=== PATIENT | male | born 1950 | race African-American/Black ===

== ENCOUNTER 2019-02-08 00:07 | Inpatient (IN) | payer OTHER, MEDICAID ==
[~2019-02-08] VITALS: Ht 182.9 cm; Wt 72.6 kg
[2019-02-08 00:07] VITALS: BP 141/66
--- NOTE | 2019-02-08 00:07 | NUR ---
DICK BECKER. TAKEN TO BED 1
--- NOTE | 2019-02-08 00:16 | NUR ---
68 YEAR OLD MALE COMPLAINS OF ABDOMINAL PAIN X 3 DAYS. PATIENT STATES THAT PAIN IS 9/10 AND THAT IT RADIATES FROM ABDOMEN TO LEGS. BOWEL SOUNDS ACTIVE X4, PAIN ON PALPATION IN UPPER ABDOMINAL AREA. PATIENT STATES HE HAS HAD NAUSEA BUT NO VOMITTING. HR 69, 100% O2, BP 138/88, RR 15. PATIENT ALERT AND ORIENTED, BREATHING EVEN AND UNLABORED, SKIN WARM AND DRY. BED IN LOWEST POSITION, LOCKED, BED RAIL UPX1.
[2019-02-08 01:03] LABS: BASOPHILS % (AUTO) 0.4 % (0.0-2.0); EOSINOPHILS % (AUTO) 0.9 % (0.0-4.0); HEMATOCRIT 31.9 % (36-52); HEMOGLOBIN 10.4 g/dL (12.0-18.0); LYMPHOCYTES # (AUTO) 1.3 K/uL (2.0-11.5); MEAN CORPUSCULAR HEMOGLOBIN 28 pg (27-31); MEAN CORPUSCULAR HGB CONC 33 g/dL (33-37); MEAN CORPUSCULAR VOLUME 86.3 fL (80-94); MONOCYTES # (AUTO) 0.5 K/uL (0.8-1.0); MONOCYTES % (AUTO) 11.8 % (1.7-9.3); NEUTROPHILS # (AUTO) 2.5 K/uL (1.8-7.7); NEUTROPHILS % (AUTO) 56.5 % (42.2-75.2); PLATELET COUNT (AUTO) 260 K/uL (140-450); RED BLOOD CELL COUNT(AUTO) 3.69 MIL/uL (4.20-6.10); RED CELL DISTRIBUTION WIDTH 13.5 % (11.6-13.7); WHITE BLOOD COUNT (AUTO) 4.4 K/uL (4.8-10.8)
--- NOTE | 2019-02-08 01:20 | NUR ---
PATIENT RESTING WITH EYES CLOSED, BREATHING EVEN AND UNLABORED
[2019-02-08 01:22] LABS: LYMPHOCYTES % (AUTO) 30.4 % (20.5-51.1)
[2019-02-08 01:24] LABS: ANION GAP 13.2 (8-16); CARBON DIOXIDE 26.8 mmol/L (21-32); CREATININE 0.9 mg/dL (0.7-1.3)
[2019-02-08 01:25] LABS: TOTAL BILIRUBIN 0.3 mg/dL (0.0-1.0)
[2019-02-08] MEDS ORDERED: ASPIRIN 81 MG TAB.CHEW PO ONE (01:45)
--- NOTE | 2019-02-08 01:48 | NUR ---
Dr. Richards examining patient.
[2019-02-08] MEDS ORDERED: PANTOPRAZOLE 40 MG INJ VIAL IVP ONE (02:05)
[2019-02-08] MEDS ORDERED: DEXTROSE 50% 50 ML SYR IVP PRN (02:20)
[2019-02-08] MEDS ORDERED: INSULIN LISPRO SLIDING SCALE 100 UNITS/ML VIAL SUBQ PRN (02:20)
[2019-02-08] MEDS ORDERED: NITROGLYCERIN 0.4 MG TAB SL PRN (02:20)
[2019-02-08] MEDS ORDERED: ACETAMINOPHEN 325 MG TAB PO PRN (02:20)
[2019-02-08] MEDS ORDERED: ONDANSETRON 4 MG/2 ML VIAL IVP PRN (02:20)
[2019-02-08] MEDS ORDERED: HYDROcodone/APAP 7.5/325 MG 1 TAB PO PRN (02:20)
--- NOTE | 2019-02-08 02:30 | NUR ---
PATIENT ALERT AND ORIENTED, BREATHING EVEN AND UNLABORED, WILL CONTINUE TO MONITOR.
[2019-02-08 02:54] LABS: PROTHROMBIN TIME 9.9 secs (10.8-13.4)
--- NOTE | 2019-02-08 03:40 | NUR ---
RECEIVED BEDSIDE REPORT FROM ED RN FOR PT'S CONTINUITY OF CARE. PT WAS TRANSPORTED VIA GURNEY, AAO X 4, PT C/O PAIN AND HUNGER, PT IS ON PROCESS DEVELOPMENT ENGINEER, IS ON ROOM AIR, HAS RIGHT WRIST 20G. VS CHECKED AND CHARTED. SKIN IS INTACT. EXPLAINED TO PT THE FISH AND GAME CLUB MANAGER ROUTINE, PT VERBALIZED UNDERSTANDING. PT REQUESTED AND PROVIDED SANDWICH AND DRINKS. SAFETY MEASURES IN PLACE, CALL LIGHT IS WITHIN REACH. WILL MONITOR PT THROUGHOUT SHIFT.
--- NOTE | 2019-02-08 03:40 | NUR ---
Patient will be admitted to care of DR SIMS. Admited to TELE. Will go to room 112A. Belongings list completed. Report to JOE RORDIGUEZ.
[2019-02-08 03:48] LABS: FREE T4 (FREE THYROXINE) 1.15 ng/dL (0.76-1.46); MAGNESIUM 1.9 mg/dL (1.8-2.4); THYROID STIMULATING HORMONE 0.82 uIU/mL (0.34-3.74)
[2019-02-08 04:00] VITALS: BP 140/88
[2019-02-08] MEDS: NACL 0.9% 1,000 ML IV SCH (04:22)
--- NOTE | 2019-02-08 04:23 | NUR ---
PT C/O BACK PAIN. ADMINISTERED PO PAIN MEDICATION AND IVF ORDERED. PT TOLERATED IT WELL.
[2019-02-08] MEDS: BLOOD GLUCOSE MONITORING 1 DEV DEV FS SCH ×4 (06:24→20:44)
--- NOTE | 2019-02-08 06:25 | NUR ---
PT REFUSED BLOOD GLUCOSE CHECK. PT TEACHING GIVEN. PT WANTS IT DONE SOME OTHER TIME AND JUST WANTS TO SLEEP. WILL ENDORSE PT TO AM SHIFT RN FOR PT'S CONTINUITY OF CARE.
[2019-02-08] MEDS ORDERED: EMTR1TAB12 PO (06:46)
[2019-02-08] MEDS ORDERED: COBI1TAB PO (06:46)
[2019-02-08] MEDS ORDERED: PANT40EC PO (06:46)
[2019-02-08] MEDS ORDERED: HYDR-5092 PO (06:46)
--- NOTE | 2019-02-08 07:20 | NUR ---
RECEIVED PATIENT FROM ENVIRONMENTAL COMPLIANCE OFFICER NURSE. PATIENT IS SLEEPING AT THIS TIME. VISIBLE CHEST RISE NOTED. ON TELE MONITORING. ABDOMEN SOFT AND NONTENDER. SKIN INTACT, WARM AND DRY. LUMBAR LORDOSIS NOTED. IV IN THE RIGHT WRIST GAUGE 20 RUNNING NS AT 10 ML/HR. PATIENT IS AMBULATORY. BED IN LOW POSITION. CALL LIGHT IS WITHIN REACH. WILL CONTINUE TO MONITOR
[2019-02-08 08:00] VITALS: BP 130/81
--- NOTE | 2019-02-08 08:00 | NUR ---
VITAL SIGNS TAKEN. PATIENT SHOWS NO DISTRESS. WILL CONTINUE TO MONITOR
--- NOTE | 2019-02-08 08:47 | NUR ---
DC PLANNIN YRS OLD MALE PATIENT WAS ADMITTED FROM HOME WITH A DX OF CHEST PAIN R/O ACS. PT HAS A HX. OF HIV, HEP C AND GERD. EKG DON RESULTED NSR WITH OUT EVIDENCE OF STEMI TROP (-), STARTED ACS MEDS ASA METOPROLOL, LISINOPRIL ATORVASTATIN AND NTG AND CARDIOLOGY CONSULT. DC PLAN TO GO HOME WHEN STABLE. CM TO FOLLOW.
[2019-02-08] MEDS ORDERED: PSYLLIUM 12.2 GM/PKT PO SCH (09:00)
[2019-02-08] MEDS ORDERED: EMTRICITABINE/TENOFOVIR 200-300MG 1 TAB PO SCH (09:00)
[2019-02-08] MEDS ORDERED: COBICISTAT PO SCH (09:00)
[2019-02-08] MEDS ORDERED: DARUNAVIR PO SCH (09:00)
--- NOTE | 2019-02-08 09:00 | NUR ---
PATIENT REFUSED TO GIVE HOME MEDS TO PHARMACY. PATIENT STATED HE DOES NOT WANT PHARMACY TO LOSE HIS HOME MEDICATIONS.
--- NOTE | 2019-02-08 09:07 | NUR ---
PATIENT HAS BEEN SCREENED AND CATEGORIZED MODERATE NUTRITION RISK. PATIENT WILL BE SEEN WITHIN 3-5 DAYS OF ADMISSION. 02/10/18 02/12/[address]
[2019-02-08] MEDS ORDERED: AMOXIL/CLAVULANATE 875/125 MG 1 TAB PO SCH (09:30)
[2019-02-08] MEDS: LISINOPRIL 5 MG TAB PO SCH (10:07)
[2019-02-08] MEDS: ASPIRIN 81 MG TAB.CHEW PO SCH (10:07)
[2019-02-08] MEDS: DOCUSATE SODIUM 100 MG GELCAP PO SCH ×2 (10:08→20:33)
[2019-02-08] MEDS: PANTOPRAZOLE 40 MG TABEC PO SCH (10:09)
[2019-02-08] MEDS: METOPROLOL 25 MG TAB PO SCH ×2 (10:09→20:37)
--- NOTE | 2019-02-08 10:10 | NUR ---
PATIENT ASKED TO RE-HEAT BREAKFAST. JORGE WEBSTER RE-HEAT THE FOOD. PATIENT REFUSED TO EAT BREAKFAST
--- NOTE | 2019-02-08 10:20 | NUR ---
PHYSICAL THERAPY AT BEDSIDE.
--- NOTE | 2019-02-08 10:30 | NUR ---
CALLED [facility] FOR FOOD. SANDWICH TO BE GIVEN TO THE PATIENT
[2019-02-08] MEDS: HYDROcodone/APAP 10/325 MG 1 TAB TAB PO PRN ×2 (10:39→22:09)
--- NOTE | 2019-02-08 10:49 | NUR ---
GIVEN MORNING MEDICATIONS PO. PATIENT REFUSED HEPARIN SUBQ. EXPLAINED TO PATIENT PURPOSE OF MEDS. PATIENT VERBALIZED UNDERSTANDING. BED IN LOW POSITION. CALL LIGHT IS WITHIN REACH. WILL CONTINUE TO MONITOR
--- NOTE | 2019-02-08 11:00 | NUR ---
SANDWICH GIVEN TO THE PATIENT. PATIENT INSISTING HE WANT BREAKFAST WITH SCRAMBLED EGGS, SAUSAGE. CHARGE NURSE SPOKE WITH THE PATIENT REGARDING THE TIME FOR BREAKFAST.
--- NOTE | 2019-02-08 11:05 | NUR ---
PATIENT REQUESTED MILK. GAVE TWO CARTOONS
--- NOTE | 2019-02-08 11:30 | NUR ---
PATIENT REFUSED BLOOD SUGAR CHECK
[2019-02-08 12:00] VITALS: BP 140/93
--- NOTE | 2019-02-08 12:46 | NUR ---
PER ANGLESMITH HELPER, PATIENT IS OFFERED LUNCH TRAY. ASKED TO CLEAR HIS BEDSIDE TABLE. PATIENT THREW AWAY SANDWICH ON THE FLOOR.
[2019-02-08] MEDS ORDERED: MAGNESIUM HYDROXIDE 2400 MG/30 ML UDC PO PRN (13:45)
--- NOTE | 2019-02-08 14:18 | NUR ---
EXPLAINED TO PATIENT PROCEDURE FOR BLADDER SCAN. PATIENT VERBALIZED UNDERSTANDING. BLADDER SCAN DONE, 200 ML URINE.
--- NOTE | 2019-02-08 15:38 | NUR ---
PATIENT IS RESTING AT THIS TIME. WATCHING TV. WILL CONTINUE TO MONITOR
[2019-02-08 16:00] VITALS: BP 138/95
--- NOTE | 2019-02-08 16:50 | NUR ---
VITAL SIGNS TAKEN. PATIENT SHOWS NO DISTRESS. WILL CONTINUE TO MONITOR. REFUSED BLOOD SUGAR CHECK
--- NOTE | 2019-02-08 16:58 | NUR ---
PATIENT IS LOOKING FOR HIS PHONE. INVENTORY SAYS THERE IS NO PHONE LISTED.
--- NOTE | 2019-02-08 16:59 | NUR ---
PATIENT ACCUSED RN OF THROWING HIS CALL LIGHT BECAUSE HE COULD NOT FIND HIS CELLPHONE. CHARGE NURSE, BALJIT PATEL WALKED INTO THE ROOM TO TALK TO THE PATIENT. PATIENT CHANGED HIS STORY SAYING THAT IT WAS NOT A CELL, AND HE WAS TALKING ABOUT A HOSPITAL WHITE PHONE. MUD TANK OPERATOR IS PAGED.
--- NOTE | 2019-02-08 17:14 | NUR ---
FIELD PLACEMENT DIRECTOR CARYN IS TALKING TO THE PATIENT AT THIS TIME.
--- NOTE | 2019-02-08 17:22 | NUR ---
UNABLE TO DO ECHO AT THIS TIME. GAS APPLIANCE SERVICER HELPER CAYRN IS SPEAKING TO PATIENT. WILL TRY ECHO AGAIN AT A LATER TIME.
[2019-02-08] MEDS ORDERED: MORPHINE SULFATE 2 MG/ML SYR IVP PRN (17:35)
[2019-02-08] MEDS ORDERED: LORazepam 2 MG/ML VIAL IVP PRN (18:15)
--- NOTE | 2019-02-08 18:30 | NUR ---
WAS ABOUT TO GIVE MORPHINE TO PATIENT BUT PATIENT REFUSED BECAUSE MORPHINE IS NOT ENOUGH DOSE. INFORMED CHARGE NURSE.
--- NOTE | 2019-02-08 18:40 | NUR ---
PT REFUSED ECHO. STATED THE GEL WAS TOO COLD. WILL TRY AGAIN TOMORROW
--- NOTE | 2019-02-08 19:10 | NUR ---
ENDORSED PATIENT TO PRODUCTION CONTROL EXPEDITER NURSE IN STABLE CONDITION
--- NOTE | 2019-02-08 19:11 | NUR ---
RECEIVED BEDSIDE REPORT FROM DAY SHIFT RN, PT STABLE, NO DISTRESS NOTED, PT C/O PAIN, STATED HE DOES NOT WANT TO TAKE MORPHINE 1MG ORDERED Q6H DUE TO MEDICATION DOSE NOT ENOUGH, WILL NOTIFY . PT ON ROOM AIR, NO SOB NOTED, IV TO LWRIST 20G PATENT INTACT, INFUSING WELL, PT ON ROOM AIR, NO SOB NOTED, INITIAL ASSESSMENT DONE, ALL SAFETY PRECAUTION MET,CALL LIGHT WITHIN REACH, WILL CONTINUE TO MONITOR.
[2019-02-08] MEDS ORDERED: MORPHINE SULFATE 2 MG/ML SYR IVP SCH (19:25)
--- NOTE | 2019-02-08 19:30 | NUR ---
DR. MAYS TALKED TO PT, DISCUSSED REGARDING PAIN MEDICATION, WILL ORDER ONE DOSE OF 2MG MORPHINE. WILL ADMINISTERED WHEN MEDICATION VERIFIED BY PHARMACY.
[2019-02-08 20:00] VITALS: BP 107/77
--- NOTE | 2019-02-08 20:26 | NUR ---
MORPHINE GIVEN PER DR ORDER, PT AWARE AND TOLERATED WELL, PAIN STATED AT 10/10, PT RESTING, CALL LIGHT WITHIN REACH, WILL CONTINUE TO MONITOR.
--- NOTE | 2019-02-08 20:33 | NUR ---
DUE MEDICATION GIVEN, PT REFUSED AUGMENTIN, AND HEPARIN, STATED DOES NOT WANT TO TAKE MEDICATION DUE TO IT BEING PRESCRIBED BY THE EARLIER DOCTOR, EDUCATE PT REGARDING MEDICATION STATED STILL DOES NOT WANT TO TAKE IT AND REQUESTED TO TALK TO . DR. MAYS SAW PT, PT STILL REFUSED MEDICATION. PT RESTING, NO DISTRESS NOTED, CALL LIGHT WITHIN REACH, WILL CONTINUE TO MONITOR. PT ALSO REFUSED BLOOD GLUCOSE CHECKS, STATED HE DOES NOT HAVE DIABETES AND REFUSED SUGAR CHECKS.
[2019-02-08] MEDS: AMOXIL/CLAVULANATE 875/125 MG 1 TAB PO SCH (20:44)
[2019-02-08] MEDS ORDERED: ATORVASTATIN 20 MG TAB PO SCH (21:00)
--- NOTE | 2019-02-08 21:30 | NUR ---
PT WENT TO CT WITH EDGE BASTER. STABLE.
--- NOTE | 2019-02-08 22:00 | NUR ---
PT CAME BACK FROM CT. PT REFUSED CT. NO DISTRESS NOTED, WILL CONTINUE TO MONITOR. Addendum: 02/09/19 at 0032 by Constanza Lawton RN DR DAVON RIOS
--- NOTE | 2019-02-08 22:09 | NUR ---
PT STATED HAVING PAIN, MEDICATION GIVEN, PT TOLERATED WELL, NO DISTRESS NOTED, CALL LIGHT WITHIN REACH, WILL CONTINUE TO MONITOR.
[2019-02-08 23:23] LABS: BARBITURATE, URINE NEG. ng/ml (NEG <=200); BENZODIAZEPINE, URINE NEG. ng/mL (NEG <=200); CANNABINOID, URINE POS. ng/mL (NEG <=50); COCAINE, URINE NEG. ng/mL (NEG <=300); OPIATE, URINE POS. ng/mL (NEG <=2000); PHENCYCLIDINE SCREEN,URINE NEG. ng/mL (NEG <=25)
[2019-02-09] VITALS: BP 136/89
--- NOTE | 2019-02-09 00:23 | NUR ---
CHECKED ON PT, PT RESTING, V/S TAKEN, WNL, CALL LIGHT WITHIN REACH, WILL CONTINUE TO MONITOR. PT STATED DO NOT WAKE HIM UP FOR MORNING V/S, EXPLAINED TO PT REGARDING IMPORTANCE OF V/S MONITORING, PT STATED, DO NOT WAKE HIM UP.
[2019-02-09] MEDS: NACL 0.9% 1,000 ML IV SCH (02:18)
--- NOTE | 2019-02-09 02:57 | NUR ---
CHECKED ON PT, PT SLEEPING, NO DISTRESS NOTED, CALL LIGHT WITHIN REACH, WILL CONTINUE TO MONITOR.
--- NOTE | 2019-02-09 05:15 | NUR ---
PT PULLED OUT IV, PT REFUSED IV INSERTION AT THIS TIME, NO DISTRESS NOTED, SLEEPING, CALL LIGHT WITHIN REACH, WILL CONTINUE TO MONITOR.
[2019-02-09] MEDS: BLOOD GLUCOSE MONITORING 1 DEV DEV FS SCH ×2 (05:50→11:30)
[2019-02-09] MEDS: PANTOPRAZOLE 40 MG TABEC PO SCH (05:50)
--- NOTE | 2019-02-09 05:51 | NUR ---
PT SLEEPING, DOES NOT WANT TO WAKE UP FOR MEDICATION PROTONIX, AND BLOOD GLUCO CHECK. PT STABLE, NO DISTRESS NOTED, CALL LIGHT WITHIN REACH, WILL CONTINUE TO MONITOR.
--- NOTE | 2019-02-09 07:20 | NUR ---
RECEIVED BED SIDE REPORT FROM LYMPHEDEMA THERAPIST NURSE, PATIENT IS IN STABLE CONDITION. WILL CONTINUE TO MONITOR
--- NOTE | 2019-02-09 07:24 | NUR ---
ENDORSED PT TO DAY SHIFT NURSE AMINTA RN, PT STABLE, NO DISTRESS NOTED, CALL LIGHT WITHIN REACH.
[2019-02-09 08:00] VITALS: BP 126/85
[2019-02-09 08:17] LABS: APPEARANCE,URINE CLEAR (CLEAR); BILIRUBIN,URINE NEGATIVE (NEGATIVE); BLOOD, URINE NEGATIVE (NEGATIVE); COLOR,URINE YELLOW (YELLOW); LEUKOCYTE ESTERASE ,URINE TRACE (NEGATIVE); NITRITE, URINE NEGATIVE (NEGATIVE); PH,URINE 6.5 (5.0-9.0); UGLUCOSE NEGATIVE (NEGATIVE)
--- NOTE | 2019-02-09 08:45 | NUR ---
SPOKE WITH PATIENT REGARDING MEDICATION, EDUCATED PATIENT ON THE SIDE EFFECTS OF MEDICATIONS AND PATIENT STATES HE WOULD LIKE TO HOLD OFF ON MEDICATIONS AND STATES, "DOES NOT WANT TO TAKE ANYTHING RIGHT NOW". WILL COME BACK TO REEDUCATE THE IMPORTANCE OF TAKING MEDICATIONS.
[2019-02-09 08:52] LABS: RBC,URINE 0-5 /HPF (0-5)
[2019-02-09] MEDS: AMOXIL/CLAVULANATE 875/125 MG 1 TAB PO SCH ×3 (09:00→11:55)
[2019-02-09] MEDS: DOCUSATE SODIUM 100 MG GELCAP PO SCH ×3 (09:00→11:55)
[2019-02-09] MEDS: METOPROLOL 25 MG TAB PO SCH ×3 (09:00→11:56)
[2019-02-09] MEDS: PSYLLIUM 12.2 GM/PKT PO SCH ×2 (09:00→10:48)
[2019-02-09] MEDS: LISINOPRIL 5 MG TAB PO SCH ×2 (09:00→10:46)
[2019-02-09] MEDS: ASPIRIN 81 MG TAB.CHEW PO SCH ×3 (09:00→11:55)
--- NOTE | 2019-02-09 09:30 | NUR ---
P.T. NOTES @ 0810, PATIENT WAS CLEARED FOR P.T. BY HIS NURSE AMINTA BUT BECAUSE HIS BREAKFAST TRAY WAS JUST SET UP AND HE IS ABOUT TO EAT, HE TOLD ME TO COME BACK LATER WHEN HE'S DONE. IRA, [facility] DIRECTOR INFORMED ME LATER THAT HE TOLD HER THAT HE WANTS PHYSICAL THERAPY NOW AND THAT HE WAS WAITING FOR ME. I RETURNED BACK AT 0930, BUT THEN HE APPEARS TO BE VERY AGITATED AND STATES THAT HE WANTS TO SPEAK TO HE HEAD DOCTOR TO ASK WHY PHYSICAL THERAPY IS BEING ORDERED AND THAT HE DOES NOT NEED IT. HE THEN STARTED TO TALK ABOUT HIS PAIN MEDICATION THAT IS NOT ENOUGH AND THAT THE STAFFS HERE ARE PLAYING GAMES WITH HIM BECAUSE HE IS NOT GETTING ENOUGH PAIN MEDICATION TO ALLEVIATE HIS PAIN. THIS PATIENT IS NOT APPROPRIATE WITH PHYSICAL THERAPY AT THIS TIME SO HE WILL BE DISCHARGED FROM THE SERVICES AND WILL ENDORSE TO NURSING FOR FOLLOW UP CARE.
--- NOTE | 2019-02-09 09:30 | NUR ---
PATIENT REFUSES PT/ REFUSES BLOOD DRAW. IS CURRENTLY TALKING TO [employer] REGARDING PLAN OF CARE. PER PROVIDER PT IS STABLE TO BE TO BE DISCHARGED TODAY. WILL CONTINUE TO MONITOR.
--- NOTE | 2019-02-09 10:02 | NUR ---
MEDICATIONS GIVEN, PATIENT REALLY UPSET ABOUT DISCHARGE, REQUESTING NEW PROVIDER. STATE HISTORICAL SOCIETY DIRECTOR SPEAKING TO PATIENT AT THIS MOMENT REGARDING CARE
--- NOTE | 2019-02-09 11:44 | NUR ---
Spoke to patient after he requested to speak to me, complaint about his missing phone and the nurses who was searching his bed to look for the cellphone. Also complaint about the doctor that his 1 mg of morphine is not controlling his pain and he takes oxycodone 3 times a day. I informed him that I will speak to the doctor to increase his pain med. He requested to change his nurse and his nurse assistance, I spoke to the charge nurse about the request and it was changed. Later he wants his dinner to be delivered by me because he does not trust the one who delivered the dinner tray. I explained to him that dinner is clean, he said he does not trust them and that he trust me. I went to the kitchen and ordered new tray for him. I spoke to the doctor regarding increase pain med.
[2019-02-09] MEDS: HYDROcodone/APAP 10/325 MG 1 TAB TAB PO PRN (11:55)
--- NOTE | 2019-02-09 11:55 | NUR ---
MEDICATIONS WERE VERIFIED WITH PROVIDER AND WILL BE SENT TO [facility] IN [place], PATIENT REQUESTING TO GET A RIDE TO [facility], S/W FLASH OVEN OPERATOR AND WILL COORDINATE RIDE. PATIENT REFUSING PM MEDICATIONS AT THIS TIME, ALSO REFUSING VITAL SIGNS AND GLUCOSE CHECKS. STATES HE IS NOT DIABETIC. PATIENT REEDUCATED ON THE IMPORTANCE OF MEDICATION ADMIN. REQUESTING THE PHARMACY TO ORDER DESCOZY AND PREZCOBIX WHICH IS HAS BEEN TAKING AT HOME. STATES THESE MEDICATIONS HAVE BEEN GIVEN TO HIM YESTERDAY. CONFIRMED WITH PHARMACIST THAT THE REQUESTED MEDICATIONS HAVE NOT BEEN GIVEN TO PATIENT WE DO NOT CARRY THESE TYPES OF MEDICATIONS. WILL CONTINUE TO MONITOR.
--- NOTE | 2019-02-09 13:05 | NUR ---
PATIENT EDUCATED ON MEDICATIONS SIDE EFFECTS, DISCHARGE INSTRUCTIONS WERE GIVEN TO PATIENT, PATIENT VERBALIZED UNDERSTANDING, AND WILL MILL OPERATOR HELPER MEDICATIONS TO [facility]. HOMELESS RESOURCE PACKAGE GIVEN TO PATIENT, ALONG WITH LUNCH AND OTHER SUPPLIES INCLUDING TOOTHBRUSH, COMB, LOTION, ETC. PATIENT REQUESTING TO CALL THE CAB, [facility] WAS CALLED, SPOKED WITH YOSSI AND COORDINATED RIDE FOR PATIENT. PATIENT DOES NOT HAVE AN IV ACCESS. PATIENT REQUESTING TO HAVE TIME TO GET CLEANED UP AND DRESS FOR DISCHARGED WILL CONTINUE TO FOLLOW UP WITH PATIENT WITH DISCHARGE PLANNING
--- NOTE | 2019-02-09 13:45 | NUR ---
PATIENT DRESSED IN OWN CLOTHES, READY FOR DISCHARGE, BELONGINGS GIVEN TO PATIENT AND ALL DISCHARGE INSTRUCTIONS EXPLAINED AND GIVEN TO PATIENT. PATIENT VERBALIZED UNDERSTANDING, PATIENT WAS WHEELCHAIR TO THE LOBBY WERE THE [facility] WAS AWAITING HIS ARRIVAL. ID BAND REMOVED; HOWEVER, PATIENT REQUESTING TO KEEP ID BAND FOR HIS POLICE ACADEMY PROGRAM COORDINATOR. PATIENT WAS DISCHARGED AT THIS TIME.
[2019-02-09] MEDS ORDERED: AUG875 PO (14:30)
[2019-02-09] MEDS ORDERED: METPCK PO (14:30)
[2019-02-09] MEDS ORDERED: LACT-81 PO (14:31)
[2019-02-09] MEDS ORDERED: HYDR-5122 PO (14:47)
== END 2019-02-09 13:45 | disposition home or self-care (01) | DRG 552 ==
LOC: MED 00:07 → MTU 02:26
PROVIDERS: ADMIT General Practice; ATTEND General Practice
DX: M40.295 Other kyphosis, thoracolumbar region (principal); D68.59 Other primary thrombophilia; E44.0 Moderate protein-calorie malnutrition; E11.9 Type 2 diabetes mellitus without complications; K21.9 Gastro-esophageal reflux disease without esophagitis; B19.20 Unspecified viral hepatitis C without hepatic coma; K59.00 Constipation, unspecified; E86.0 Dehydration; F41.9 Anxiety disorder, unspecified; M54.16 Radiculopathy, lumbar region; F39 Unspecified mood [affective] disorder; Z91.14 Patient's other noncompliance with medication regimen; Z86.19 Personal history of other infectious and parasitic diseases; Z68.21 Body mass index [BMI] 21.0-21.9, adult; Z59.0 Homelessness
CPT/HCPCS: 36415; 71045; 76536; 80053; 80305; 81001; 82150; 83036; 83690; 83735; 83880; 84100; 84439; 84443; 84484; 85025; 85610; 85730; 87040; 87081; 87086; 87804; 93005; 96374; 97161-GP; 99285; C9113; J1644; J2270; J7030; Q0092